=== PATIENT | male | born 1990 | race Caucasian/White ===

== ENCOUNTER 2018-05-03 13:42 | Emergency (ER) | payer OTHER ==
[2018-05-03 13:51] VITALS: BP 129/69
--- NOTE | 2018-05-03 14:15 | UC ---
Throat Pain/Nasal Murali HPI - HPI Summary HPI Summary: 27-year-old male who comes in today with a chief complaint of nasal congestion and rhinorrhea for 3 weeks. The worst congestion is in the left nostril. he's tried decongestants and they have not helped. No recent fevers. He does have pressure in the left side of the frontal sinuses. - History of Current Complaint Chief Complaint: UCRespiratory Stated Complaint: SINUS CONGESTION Time Seen by Provider: 05/03/18 14:02 Pain Intensity: 2 - Allergies/Home Medications Allergies/Adverse Reactions: Allergies Allergy/AdvReac Type Severity Reaction Status Date / Time nickel Allergy Rash Verified 05/03/18 13:52 Home Medications: Home Medications Oxymetazoline HCl [Nasal [place]] 1 spray INH ONCE PRN 05/03/18 [History Confirmed 05/03/18] PMH/Surg Hx/FS Hx/Imm Hx Previously Healthy: Yes - Surgical History Surgical History: None - Family History Known Family History: Positive: Non-Contributory - Social History Alcohol Use: Occasionally Substance Use Type: None Smoking Status (MU): Never Smoked Tobacco Review of Systems All Other Systems Reviewed And Are Negative: Yes Constitutional: Positive: Negative Skin: Positive: Negative Eyes: Positive: Blurred Vision - LEFT EYE WITH INCREASED SINUS CONGESTION ENT: Positive: Sore Throat, Nasal Discharge, Sinus Congestion, Sinus Pain/ Tenderness Respiratory: Positive: Negative Cardiovascular: Positive: Negative Gastrointestinal: Positive: Negative Neurovascular: Positive: Negative Musculoskeletal: Positive: Negative Neurological: Positive: Negative Psychological: Positive: Negative Is Patient Immunocompromised?: No Physical Exam Triage Information Reviewed: Yes Appearance: No Pain Distress, Well-Nourished, Ill-Appearing - MILD Vital Signs: Initial Vital Signs Temp 98.1 F 05/03/18 13:48 Pulse 62 05/03/18 13:48 Resp 18 05/03/18 13:48 BP 129/69 05/03/18 13:48 Pulse Ox 99 05/03/18 13:48 Vital Signs Reviewed: Yes Eye Exam: Normal Eyes: Positive: Conjunctiva Clear ENT: Positive: Pharyngeal erythema, Nasal congestion, Nasal drainage, TMs normal , Uvula midline Neck exam: Normal Neck: Positive: Supple Respiratory: Positive: Lungs clear, Normal breath sounds, No respiratory distress Cardiovascular Exam: Normal Cardiovascular: Positive: RRR Musculoskeletal Exam: Normal Musculoskeletal: Positive: Strength Intact, ROM Intact Neurological Exam: Normal Neurological: Positive: Alert, Muscle Tone Normal Psychological Exam: Normal Psychological: Positive: Age Appropriate Behavior Skin Exam: Normal Throat Pain/Nasal Course/Dx - Differential Dx/Diagnosis Provider Diagnosis: Sinusitis Discharge - Sign-Out/Discharge Documenting (check all that apply): Patient Departure All imaging exams completed and their final reports reviewed: No Studies - Discharge Plan Condition: Stable Disposition: HOME Prescriptions: Amoxicillin/Clavulanate TAB* [Augmentin TAB 875*] 875 mg PO BID #20 tab Fluticasone NASAL SPRAY 50MCG* [Flonase NASAL SPRAY 50MCG*] 2 spray BOTH NARES DAILY #1 btl Patient Education Materials: Sinusitis (ED) Referrals: [facility] [place] [facility]IAN REFERRAL [Outside] Additional Instructions: FOLLOW UP WITH YOUR DOCTOR IF NOT COMPLETELY IMPROVED. GET RECHECKED FOR ANY WORSENING OF YOUR CONDITION OR QUESTIONS OR CONCERNS. - Billing Disposition and Condition Condition: STABLE Disposition: Home
== END 2018-05-03 14:21 | disposition home or self-care (01) ==
LOC: UCEAST 13:42
DX: J32.9 Chronic sinusitis, unspecified (principal)
CPT/HCPCS: 99202; G0463

== ENCOUNTER 2019-07-28 12:29 | Emergency (ER) | payer OTHER ==
[2019-07-28 13:29] VITALS: BP 113/64
--- NOTE | 2019-07-28 14:10 | UC ---
Respiratory Complaint HPI - HPI Summary HPI Summary: 28 y/o male presents to the urgent care c/o productive cough for the past 11 days w/o any improvement despite taking OTC medications. Pt reports symptoms started w/ sinus congestion, nasal discharge and PND. He has PMHX of asthma and this morning he developed mild SOB and mild wheezing. His albuterol inhaler has . He states for the past 3 years since he arrived to [place] , his asthma has been acting up a least 2/year. Pt reports he was in [place] w/ her family about weeks ago , and after he returned he developed the URI symptoms. Pt is producing a green phlegm at times. last night he experienced chills, but he denies fever. He also denies dizziness, VARGAS, chest pain, abdominal pain, N/V/ D. - History of Current Complaint Chief Complaint: UCRespiratory Stated Complaint: COUGH X 11 DAYS Time Seen by Provider: 07/28/19 14:08 Hx Obtained From: Patient Onset/Duration: Gradual Onset, Lasting Weeks - 2 weeks, Still Present, Worse Since - 2 days w/ wheezing Timing: Intermittent Episodes Severity Initially: Mild Severity Currently: Moderate Pain Intensity: 0 Pain Scale Used: 0-10 Numeric Character: Cough: Productive, Sputum Description: - yellowish Aggravating Factors: Recumbent Position Alleviating Factors: Bronchodilator, OTC Meds Associated Signs And Symptoms: Positive: Chills, Wheezing, URI, Nasal Congestion - yellowish, Sinus Discomfort. Negative: Fever, Dizziness - Risk Factors Pulmonary Embolism Risk Factors: Negative Cardiac Risk Factors: Negative Pseudomonas Risk Factors: Negative Tuberculosis Risk Factors: Negative - Allergies/Home Medications Allergies/Adverse Reactions: Allergies Allergy/AdvReac Type Severity Reaction Status Date / Time nickel Allergy Rash Verified 07/28/19 13:29 Home Medications: Home Medications Albuterol HFA INHALER* [Ventolin HFA Inhaler*] 2 puff INH BID PRN #1 mdi [Rx] DOXYcycline CAP(*) [DOXYcycline 100MG CAP(*)] 100 mg PO BID #20 cap 07/28/19 [Rx ] predniSONE 20 mg TAB [Deltasone 20 MG TAB*] 20 mg PO DAILY #8 tab 07/28/19 [Rx] PMH/Surg Hx/FS Hx/Imm Hx Previously Healthy: Yes Respiratory History: Asthma - Surgical History Surgical History: None - Family History Known Family History: Positive: Hypertension, Diabetes - Social History Occupation: Employed Full-time Lives: With Family Alcohol Use: Occasionally Substance Use Type: None Smoking Status (MU): Never Smoked Tobacco Review of Systems All Other Systems Reviewed And Are Negative: Yes Constitutional: Positive: Chills, Fatigue Skin: Positive: Negative Eyes: Positive: Negative ENT: Positive: Nasal Discharge - yellowish, Sinus Congestion, Other - PND Respiratory: Positive: Shortness Of Breath - mild, Cough - productive cough w/ yellowish phlegm x 11 days, Other - wheezing Cardiovascular: Positive: Negative Gastrointestinal: Positive: Negative Genitourinary: Positive: Negative Motor: Positive: Negative Neurovascular: Positive: Negative Musculoskeletal: Positive: Myalgia Neurological/Mental Status: Positive: Negative Psychological: Positive: Negative Is Patient Immunocompromised?: No Physical Exam - Summary Physical Exam Summary: Vital Signs Reviewed: Yes General: well developed, well nourished male sitting in the examining table w/o any apparent distress Eyes: Positive: Conjunctiva Clear - PERRLA, EOMI, fundi grossly normal ENT: Positive: Normal ENT inspection, Hearing grossly normal, Pharynx normal, Nasal congestion - edematous and erythematous nasal mucosa, Nasal drainage - yellowish drainage, TMs normal. Negative: Tonsillar swelling, Tonsillar exudate Neck: Positive: Supple, Nontender, No Lymphadenopathy Respiratory: no orthopnea or dyspnea. Able to speak in full sentences, no retractions or accessory muscle use, no tripod position, stridor, or head bobbing. Positive breath sounds bilaterally. diffuse scattered wheezing and rhonchi on b/L lungs, no crackles or rales. Cardiovascular: Positive: RRR, No Murmur, Pulses Normal, Brisk Capillary Refill Abdomen Description: Positive: Nontender, No Organomegaly, Soft. Negative: CVA Tenderness (R), CVA Tenderness (L) Bowel Sounds: Positive: Present Musculoskeletal Exam: Normal Musculoskeletal: Positive: Strength Intact, ROM Intact, No Edema Neurological Exam: Normal Psychological Exam: Normal Skin Exam: Normal Triage Information Reviewed: Yes Vital Signs: Initial Vital Signs Temp 98.8 F 07/28/19 13:26 Pulse 58 07/28/19 13:26 Resp 18 07/28/19 13:26 BP 113/64 07/28/19 13:26 Pulse Ox 99 07/28/19 13:26 Respiratory Course/Dx - Course Course Of Treatment: 28 y/o male presents to the urgent care c/o productive cough for the past 11 days w/o any improvement despite taking OTC medications. Pt reports symptoms started w/ sinus congestion, nasal discharge and PND. He has PMHX of asthma and this morning he developed mild SOB and mild wheezing. His albuterol inhaler has . He states for the past 3 years since he arrived to [place] , his asthma has been acting up a least 2/year. Pt reports he was in [place] w/ her family about weeks ago , and after he returned he developed the URI symptoms. Pt is producing a green phlegm at times. last night he experienced chills, but he denies fever. He also denies dizziness, VRAGAS, chest pain, abdominal pain, N/V/ D. Hx obtained. Pt w/ scattered wheezes on bilaterally lungs, and rhonchi, good air entry B/L on examination. O2Sat:99%. Pt w/ asthma exacerbation due to bronchtis. Pt given Prednisone PO and Duoneb Treatment to alleviate symptoms. Pt tolerated well treatment and lungs improved,and wheezing resolved. Patient prescribed Doxyxycline PO, Prednisone taper dose, Albuterol neb. to alleviate symptoms as directed below. The patient was recommended to increase fluid intake. Take medications as recommended. Pt advised to return to the clinic or f /u w/ his PCP if symptoms do not improve. All D/C instructions explained. Patient understood and agree w/ plan of care. Pt left clinic hemodynamically stable , A&OX3 - Differential Dx/Diagnosis Differential Diagnosis/HQI/PQRI: Asthma, Bronchitis, Influenza, Laryngitis, Lower Resp Infection, Sinusitis, Other - pneumonia Provider Diagnosis: Asthma exacerbation, Bronchitis Discharge ED - Sign-Out/Discharge Documenting (check all that apply): Patient Departure - D/c home All imaging exams completed and their final reports reviewed: Yes - Discharge Plan Condition: Stable Disposition: HOME Prescriptions: Albuterol HFA INHALER* [Ventolin HFA Inhaler*] 2 puff INH BID PRN #1 mdi PRN Reason: Wheezing DOXYcycline CAP(*) [DOXYcycline 100MG CAP(*)] 100 mg PO BID #20 cap predniSONE 20 mg TAB [Deltasone 20 MG TAB*] 20 mg PO DAILY #8 tab Patient Education Materials: Asthma (ED), Acute Bronchitis (ED) Referrals: [facility] [place] PHYS[facility]IAN REFERRAL [Outside] - 3 Days Additional Instructions: 1-Please take full course of antibiotic to avoid resistance. Take yogurts w/ probiotics or culturelle to protect your GI system 2-Take Mucinex PO tabs as directed and continue using your albuterol inhaler w / chamber to alleviate cough and wheezing. Increase fluid intake, rest and eat well. 3- Take Prednisone PO as directed starting tomorrow. First dose given today 3- If symptoms do not improve or worsen or your develop SOB with fever and severe wheezing please go immediately to the ER further evaluation and treatment. 4- F/u with your PCP in 3 days if not improvement for further management on your Asthma - Billing Disposition and Condition Condition: STABLE Disposition: Home
[2019-07-28] MEDS ORDERED: Albuterol/Ipratropium NEB.SOL* Albuterol 2.5 MG/Ipratropium 0.5 MG 3 ML INH ONE (14:30)
== END 2019-07-28 16:14 | disposition home or self-care (01) ==
LOC: UCEAST 12:29
DX: J45.901 Unspecified asthma with (acute) exacerbation (principal); Z91.048 Other nonmedicinal substance allergy status
CPT/HCPCS: 71046; 99212; A9270-GY; G0463; J7512